=== PATIENT | female | born 1960 | race Caucasian/White ===

== ENCOUNTER 2023-07-10 15:14 | Outpatient (CLI) | payer MEDICARE, BC, SELFPAY | END 2023-07-10 15:15 | disposition home or self-care (01) | LOC: NFLDREF 07-12 06:03 | PROVIDERS: PCP Family Medicine; Referring Provider Family Medicine; Visit Provider Nurse Practitioner Family | DX: N30.00 Acute cystitis without hematuria (principal) | CPT/HCPCS: 87086; 87186 ==

== ENCOUNTER 2023-09-12 09:53 | Outpatient (CLI) | payer MEDICARE, BC, SELFPAY ==
--- OUTSIDE RECORDS SUMMARY | 2023-09-12 09:58 | XMS_ITS | Clinical Summary ---
Author Organization [facility] Address [place], [place] [address] Care Team Providers Care Metal Building Assembler Name Role Phone Pcp, No Primary Care Provider Unavailabl e Allergies No known active allergies Medications No known medications Active Problems Problem Noted Date Diagnosed Date Osteopenia 10/31/2010 Overview: Mild, left femoral neck Preventative health care 06/04/2008 Overview: Colonoscopy 05/2008 normal repeat in 10 years Immunizations Name Administration Dates Next Due Influenza Virus, Unspecified 12/30/2016 Td (Age >=7 Years) 05/25/1997 Tdap 03/19/2008 Family History Medical History Relation Name Comments Heart Disease Father By pass Hypertension Father Heart Disease Mother Hypertension Sister Relation Name Status Comments Father Mother Sister Social History Tobacco Use Types Packs/Day Years Used Date Smoking Tobacco: Former Cigarettes Q uit: 04/01/1989 Smokeless Tobacco: Never Tobacco Cessation:Counseling Given: Yes Comments:smoked for 15 years Alcohol Use Standard Drinks/Week Comments No 0 (1 standard drink = 0.6 oz pure alcohol) recovering alcoholic, sober 1987 Sex and Gender Information Value Date Recorded Sex Assigned at Not on file Gender Identity Not on file Sexual Orientation Not on file Obstetrics History Para Term AB IAB SAB Ectopic Multiple Livin g Live Births 2 2 Date Outcome GA Total Labor Labor/2nd/3rd Weight Sex Type Anes PTL Seda A1 A5 Name Clin Last Filed Vital Signs Vital Sign Reading Time Taken Comments Blood Pressure 112/77 04/18/2017 5:18 PM MEDICAL CUSTOMER SERVICE REPRESENTATIVE tow er Pulse 76 04/18/2017 5:18 PM MEDICAL CUSTOMER SERVICE REPRESENTATIVE Temperature 36.6 ??C (97.9 ??F) 12/11/2012 12:48 PM C DT Respiratory Rate - - Oxygen Saturation 97% 04/18/2017 5:18 PM MEDICAL CUSTOMER SERVICE REPRESENTATIVE Inhaled Oxygen Concentration - - Weight 64.5 kg (142 lb 1.6 oz) 04/18/2017 5:18 P M MEDICAL CUSTOMER SERVICE REPRESENTATIVE Height 165.8 cm (5' 5.28) 04/18/2017 5:18 PM CS T Body Mass Index 23.45 04/18/2017 5:18 PM MEDICAL CUSTOMER SERVICE REPRESENTATIVE Plan of Treatment Health Maintenance Due Date Last Done Comments HIV for age 15-65 1973 Hepatitis C screening for ag e 18-79 01/06/1976 Zoster (shingles) series for age 50+ (1 of 2) 01/06/2008 Mammogram for age 45-75 08/07/2014 08/08/19 14, 01/25/2012, 01/25/2012, Additional history exists Tetanus booster 03/19/2018 03/19/2008, 05/25/1997 BMI (ht and wt on same day) for age 18+ 04/18/2018 04/18/2017 Depression screening for age 12+ 04/18/2018 04/18/19 18 Colonoscopy through age 75 06/04/2018 06/04/2008 Lipids for age 45-75 04/26/2022 04/26/2017, 08/07/2013, 01/25/2012, Additional history exists COVID-19 vaccine series ( - 2022-24 season) 2022 DEXA/DXA scan for age 65+ 2023 05/02/2017, Pneumococcal series for age 65+ (1 of 1 - PCV) 2023 Influenza for age 65+ 12/01/2023 12/30/2016 Tdap Completed 03/19/2008 Procedures Procedure Name Priority Date/Time Associated Diagnosis Comments XR DXA BONE DENSITY 2 SITES AXIAL Routine 05/02/2017 8:16 AM MEDICAL CUSTOMER SERVICE REPRESENTATIVE Osteoporosis screening LIPID PANEL W REFLEX MEASURED LDL Routine 04/26/2017 7:51 AM MEDICAL CUSTOMER SERVICE REPRESENTATIVE Lipid screening XR MAMMO BILAT SCREEN FFDM (IA) Routine 08/07/2013 9:14 AM CDT Other screening mammogram from Last 3 Months or Most Recently Relevant to Health Maintenance Results * (ABNORMAL) XR DXA BONE DENSITY 2 SITES AXIAL (05/02/2017 8:16 AM MEDICAL CUSTOMER SERVICE REPRESENTATIVE) Anatomical Region Laterality Modality Spine, HIPS, HIPL, HIPR Other Narrative 05/07/2017 3:04 PM MEDICAL CUSTOMER SERVICE REPRESENTATIVE Please see scanned document for results of this study. Tessa Oneal NP DEXA * (ABNORMAL) LIPID PANEL W REFLEX MEASURED LDL (04/26/2017 7:51 AM MEDICAL CUSTOMER SERVICE REPRESENTATIVE) CHOLESTEROL,TOTAL 200(H) 100 - 199 mg/dL 04/26/2017 1:17 PM MEDICAL CUSTOMER SERVICE REPRESENTATIVE [facility] [employer] [facility] TRAL LABORATORY TRIGLYCERIDES 45 <150 mg/dL 04/26/2017 1:17 PM MEDICAL CUSTOMER SERVICE REPRESENTATIVE [facility] HDL CHOLESTEROL 72 >40 mg/dL 8 1:17 PM MEDICAL CUSTOMER SERVICE REPRESENTATIVE [facility] TR[facility] LAB[facility]ORY NON-HDL CHOLESTEROL 128 <145 mg/dl 04/26/2017 1:17 PM MEDICAL CUSTOMER SERVICE REPRESENTATIVE [facility] TRAL LABOR[facility]ORY CHOL/HDL RATIO 2.78 <4.50 04/26/2017 1:17 PM MEDICAL CUSTOMER SERVICE REPRESENTATIVE [facility] TR[facility] LAB[facility] LDL CHOLESTEROL 119 <=130 mg/dL 04/26/2017 1:17 PM MEDICAL CUSTOMER SERVICE REPRESENTATIVE [facility] TRAL LABORATORY PROVIDER ORDERED STATUS RANDOM 04/26/2017 1:17 PM MEDICAL CUSTOMER SERVICE REPRESENTATIVE [facility] TRAL LABORATORY Blood BLOOD SPECIMEN / Unknown Venipuncture / Unknown 04/26/2017 7:51 AM MEDICAL CUSTOMER SERVICE REPRESENTATIVE 04/26/2017 7:52 AM MEDICAL CUSTOMER SERVICE REPRESENTATIVE Tessa Oneal NP [facility]ORATORY [address] [place] [address], [place] * XR MAMMO BILAT SCREEN FFDM (08/07/2013 9:14 AM CDT) Anatomical Region Laterality Modality BREASTS, Breast Left, Breast Right Bilateral Mammography Impressions 08/07/2013 12:11 PM CDT ??There is no radiographic evidence for malignancy. ??Recommend annual mammograms. A lay language report of this examination will be provided to the patient. MAMMOGRAM ASSESSMENT: ??ACR 2 Benign Narrative 08/07/2013 12:11 PM CDT XR MAMMO BILAT SCREEN FFDM [G0202.0] CLINICAL HISTORY: ??This is an asymptomatic 53 y.o. patient. INDICATION FOR EXAM: Mammogram Screening. TECHNIQUE: CC & MLO views were obtained. ??This digital study was evaluated with the assistance of Computer-Aided Detection. ?? COMPARISON FILMS: Yes 01/25/12 [facility] 10/26/10 [facility] FINDINGS: ??Mammographically, the breast tissue is heterogeneously dense, which could obscure detection of small masses (approximately 51% - 75% glandular). ??No suspicious masses or microcalcifications. ??Benign appearing asymmetry within right breast. Procedure Note Berry Christianson, DO - 08/07/2013 XR MAMMO BILAT SCREEN FFDM [G0202.0] CLINICAL HISTORY: This is an asymptomatic 53 y.o. patient. INDICATION FOR EXAM: Mammogram Screening. TECHNIQUE: CC & MLO views were obtained. This digital study was evaluatedwith the assistance of Computer-Aided Detection. COMPARISON FILMS: Yes 01/25/12 [facility] 10/26/10 [facility] FINDINGS: Mammographically, the breast tissue is heterogeneously dense,which could obscure detection of small masses (approximately 51% - 75%glandular). No suspicious masses or microcalcifications. Benignappearing asymmetry within right breast. IMPRESSION: There is no radiographic evidence for malignancy. Recommendannual mammograms. A lay language report of this examination will be provided to the patient. MAMMOGRAM ASSESSMENT: ACR 2 Benign Tessa Oneal NP MAMMO from Last 3 Months or Most Recently Relevant to Health Maintenance Care Teams Metal Building Assembler Relationship Specialty Start Date End Date Pcp, No . PCP - General 03/07/18
--- OUTSIDE RECORDS SUMMARY | 2023-09-12 09:58 | XMS_ITS | Clinical Summary ---
Author Organization [facility] Address [address] [place] [address] Care Team Providers Care Public Health Registrar Name Role Phone Pcp, Pt Declines Primary Care Provider [phone] Source Comments You are receiving this document as you are listed as the primary care provider,follow-up provider, or the patient has been referred to you for consultation.This is in compliance with the Medicare and[facility] Hospitalcaid EHR Incentive Program,which states Providers who transition their patient to another setting of careor provider of care or refers their patient to another provider of care shouldprovide summary care record for each transition of care or referral. [facility] Allergies No known active allergies Medications No known medications Active Problems No known active problems Social History Tobacco Use Types Packs/Day Years Used Date Smoking Tobacco: Never Assessed Sex and Gender Information Value Date Recorded Sex Assigned at Not on file Gender Identity Not on file Sexual Orientation Not on file Plan of Treatment Health Maintenance Due Date Last Done Comments Cervical Cancer Screening Due 1960 Colon Cancer Screening Plan Due 1960 Hep C Screening (Preventive Services) 1960 Mammogram 1960 Adult Preventive Visit 01/06/1976 Cholesterol 2003 Zoster/Shingles (1 of 2) 01/06/2008 DTaP/Tdap/Td (2 - Tdap) 03/19/2018 03/19/2008 COVID-19 Vaccine (3 - season) 2022 05/02/2020, 04/12/2020 Pneumococcal 65+ Yrs (1 - PCV) 2023 Influenza (Season Ended) 12/01/202312/13/ 020, 01/19/2019, 01/14/2019, Additional history exists HepA Aged Out No longer eligi ble based on patient's age to complete this topic HepB Aged Out No longer eligi ble based on patient's age to complete this topic Hib Aged Out No longer eligi ble based on patient's age to complete this topic IPV ([place]) Aged Out No longer eligi ble based on patient's age to complete this topic MCV4 Aged Out No longer eligi ble based on patient's age to complete this topic Care Teams Public Health Registrar Relationship Specialty Start Date End Date Pcp, [place] [address] PCP - General 09/10/17
== END 2023-09-12 09:54 | disposition home or self-care (01) ==
PROVIDERS: PCP Family Medicine; Visit Provider Family Medicine
DX: E78.5 Hyperlipidemia, unspecified (principal)
CPT/HCPCS: 80053; 80061

== ENCOUNTER 2023-10-09 14:47 | Outpatient (CLI) | payer MEDICARE, BC, SELFPAY ==
--- OUTSIDE RECORDS SUMMARY | 2023-10-09 14:51 | XMS_ITS | Clinical Summary ---
Author Organization [facility] Address [address] [place] [address] Care Team Providers Care Account Development Specialist Name Role Phone Pcp, Pt Declines Primary Care Provider [phone] Source Comments You are receiving this document as you are listed as the primary care provider,follow-up provider, or the patient has been referred to you for consultation.This is in compliance with the Medicare and[facility] Rehabilitationcaid EHR Incentive Program,which states Providers who transition [...] 65+ Yrs (1 - PCV) 2023 Influenza (#1) 2023 12/14/2019, 12/31, 01/14/2019, Additional history exists HepA Aged Out [...] age to complete this topic Care Teams Account Development Specialist Relationship Specialty Start Date End Date Pcp, [place] [address] PCP - General 09/10/17
--- OUTSIDE RECORDS SUMMARY | 2023-10-09 14:51 | XMS_ITS | Clinical Summary ---
Author Organization [employer] [facility] Address [place], [place] [address] Care Team Providers Care Enrollment Specialist Name Role Phone Pcp, No Primary Care [...] Comments Blood Pressure 112/77 04/18/2017 5:18 PM PULLER MACHINE tow er Pulse 76 04/18/2017 5:18 PM PULLER MACHINE Temperature 36.6 ??C (97.9 ??F) 12/11/2012 12:48 PM C DT Respiratory Rate - - Oxygen Saturation 97% 04/18/2017 5:18 PM PULLER MACHINE Inhaled Oxygen Concentration - - Weight 64.5 kg (142 lb 1.6 oz) 04/18/2017 5:18 P M PULLER MACHINE Height 165.8 cm (5' 5.28) 04/18/2017 5:18 PM CS T Body Mass Index 23.45 04/18/2017 5:18 PM PULLER MACHINE Plan of Treatment Health Maintenance Due Date [...] 2 SITES AXIAL Routine 05/02/2017 8:16 AM PULLER MACHINE Osteoporosis screening LIPID PANEL W REFLEX MEASURED LDL Routine 04/26/2017 7:51 AM PULLER MACHINE Lipid screening XR MAMMO BILAT SCREEN FFDM (IA) Routine 08/07/2013 9:14 AM CDT Other screening mammogram from Last 3 Months or Most Recently Relevant to Health Maintenance Results * (ABNORMAL) XR DXA BONE DENSITY 2 SITES AXIAL (05/02/2017 8:16 AM PULLER MACHINE) Anatomical Region Laterality Modality Spine, HIPS, HIPL, HIPR Other Narrative 05/07/2017 3:04 PM PULLER MACHINE Please see scanned document for results of this study. Tessa Oneal NP DEXA * (ABNORMAL) LIPID PANEL W REFLEX MEASURED LDL (04/26/2017 7:51 AM PULLER MACHINE) CHOLESTEROL,TOTAL 200(H) 100 - 199 mg/dL 04/26/2017 1:17 PM PULLER MACHINE [facility] [employer] [facility] TRAL LABORATORY TRIGLYCERIDES 45 <150 mg/dL 04/26/2017 1:17 PM PULLER MACHINE [facility] TRAL LABORATORY HDL CHOLESTEROL 72 >40 mg/dL 8 1:17 PM PULLER MACHINE [facility] TRAL LABORATORY NON-HDL CHOLESTEROL 128 <145 mg/dl 04/26/2017 1:17 PM PULLER MACHINE [facility] TRAL LABORATORY CHOL/HDL RATIO 2.78 <4.50 04/26/2017 1:17 PM PULLER MACHINE [facility] TRAL LABORATORY LDL CHOLESTEROL 119 <=130 mg/dL 04/26/2017 1:17 PM PULLER MACHINE [facility] TRAL LABORATORY PROVIDER ORDERED STATUS RANDOM 04/26/2017 1:17 PM PULLER MACHINE [facility] TRAL LABORATORY Blood BLOOD SPECIMEN / Unknown Venipuncture / Unknown 04/26/2017 7:51 AM PULLER MACHINE 04/26/2017 7:52 AM PULLER MACHINE Tessa Oneal NP CHE[facility]Y [facility] LAB[facility]ATORYCENTRAL LABORATORY [address] [place] [address], [place] * XR MAMMO BILAT SCREEN FFDM [...] Computer-Aided Detection. ?? COMPARISON FILMS: Yes 01/25/12 [facility] FINDINGS: ??Mammographically, the breast tissue is [...] of Computer-Aided Detection. COMPARISON FILMS: Yes 01/25/12 [facility] 10/26/10 [facility] FINDINGS: Mammographically, the breast tissue is [...] Recently Relevant to Health Maintenance Care Teams Enrollment Specialist Relationship Specialty Start Date End Date Pcp, No . PCP - General 03/07/18
--- NOTE | 2023-10-09 15:00 | CRLHL7_ITS ---
For Patients: As a result of the Century Cures Act, medical imaging exams and procedure reports are released immediately into your electronic medical record. You may view this report before your referring provider. If you have questions, please contact your health care provider. DXA BONE MINERAL DENSITY STUDY Current height (in): 65.0. Weight (lb): 143.0. Menopause age: 39. Ethnicity: White. Reason for exam: History of osteopenia. 1. Have you had a previous hip or vertebral fracture? No. 2. Have you had any fractures during your adult life which did not result from significant trauma (e.g., auto accident)? No. 3. Did either of your parents have a hip fracture? No. 4. Do you smoke? No. 5. Have you ever taken Glucocorticoids? No. 6. Do you have rheumatoid arthritis? No. 7. Do you have secondary osteoporosis? No. 8. Do you drink 3 or more alcoholic drinks per day? No. 9. Are you being treated for osteoporosis? No. 10. Have you ever taken any of the following medications: Actonel, Evista, Fosamax, Miacalcin, Reclast, Boniva, Forteo, HRT (i.e. estrogen/hormone therapy), Protelos, Prolia, Vitamin D, Calcium, other ??? please specify. ANSWER: Yes, calcium, vitamin D. 11. Do you have any of the following medical conditions: Anorexia or bulimia, asthma or emphysema, end stage renal disease, hyperparathyroidism, any seizure disorders, cancer, inflammatory bowel diseases, hysterectomy, other ??? please specify. ANSWER: No. 12. What was your maximum height (inches)? 65.5. 13. Do you perform weight bearing exercise regularly? No. 14. Do you regularly consume dairy products? No. 15. Do you drink caffeinated beverages? Yes. * 16. At what age did your period start? 12. 17. Are you premenopausal? No. 18. How many full-term pregnancies have you had? 2. 19. Have you ever missed your period for more than 6 months in a row (not including or menopause)? Yes. TECHNIQUE: Bone mineral density study was performed using the [employer]. FINDINGS: The results of the study expressed as bone mineral density (BMD) are as follows: Lumbar spine L1 to L4: BMD: 0.887 g/cm2. T-score: -1.5. Z-score: 0.4 Neck Left: BMD: 0.687 g/cm2. T-score: -1.5. Z-score: 0.1 Right: BMD: 0.637 g/cm2. T-score: -1.9. Z-score: -0.4 Total Left: BMD: 0.808 g/cm2. T-score: -1.1. Z-score: 0.2 Right: BMD: 0.746 g/cm2. T-score: -1.6. Z-score: -0.3 IMPRESSION: Osteopenia. *Comparison exams done prior to 08/2019 were performed on different unit, [employer]. COMPARISON: Compared with scan of 01/12/2021, the bone mineral density has increased by 2.9percent at the spine and increased decreased by 3.0 percent at the hip. FRAX 10-year Fracture Risk Major Osteoporotic Fracture: 9.9 percent Hip Fracture: 1.4 percent Reported Risk Factors: [place] () Neck BMD = 0.637, BMI = 23.8 Willem Amos M.D. Diagnostic Radiologist [email or web address] Transcribed: 1:46 pm DW/Dictated by: Willem Amos MD @ 10/11/2023 8:13:00 AM (Electronically Signed)
== END 2023-10-09 14:48 | disposition home or self-care (01) ==
LOC: RAD 14:50
PROVIDERS: PCP Family Medicine; Visit Provider Family Medicine
DX: M85.89 Other specified disorders of bone density and structure, multiple sites (principal); M85.80 Other specified disorders of bone density and structure, unspecified site; Z78.0 Asymptomatic menopausal state
CPT/HCPCS: 77080

== ENCOUNTER 2023-11-18 13:23 | Outpatient (CLI) | payer MEDICARE, SELFPAY ==
--- OUTSIDE RECORDS SUMMARY | 2023-11-18 13:29 | XMS_ITS | Clinical Summary ---
Author Organization [facility] Address [address] [place] [address] Care Team Providers Care Salon Supervisor Name Role Phone Pcp, Pt Declines Primary Care Provider [phone] Source Comments You are receiving this document as you are listed as the primary care provider,follow-up provider, or the patient has been referred to you for consultation.This is in compliance with the Medicare andOhio[facility] Hospitalcaid EHR Incentive Program,which states Providers who [...] age to complete this topic Care Teams Salon Supervisor Relationship Specialty Start Date End Date Pcp, [place] [address] PCP - General 09/10/17
--- OUTSIDE RECORDS SUMMARY | 2023-11-18 13:29 | XMS_ITS | Clinical Summary ---
Author Organization [employer] [facility] Address [place], [place] [address] Care Team Providers Care Registered Nurse Surgical Services Name Role Phone Pcp, No Primary Care [...] Blood Pressure 112/77 04/18/2017 5:18 PM MEDICAL RECEPTION SPECIALIST tow er Pulse 76 04/18/2017 5:18 PM MEDICAL RECEPTION SPECIALIST Temperature 36.6 ??C (97.9 ??F) 12/11/2012 12:48 PM C DT Respiratory Rate - - Oxygen Saturation 97% 04/18/2017 5:18 PM MEDICAL RECEPTION SPECIALIST Inhaled Oxygen Concentration - - Weight 64.5 kg (142 lb 1.6 oz) 04/18/2017 5:18 P M MEDICAL RECEPTION SPECIALIST Height 165.8 cm (5' 5.28) 04/18/2017 5:18 PM CS T Body Mass Index 23.45 04/18/2017 5:18 PM MEDICAL RECEPTION SPECIALIST Plan of Treatment Health Maintenance Due Date [...] SITES AXIAL Routine 05/02/2017 8:16 AM MEDICAL RECEPTION SPECIALIST Osteoporosis screening LIPID PANEL W REFLEX MEASURED LDL Routine 04/26/2017 7:51 AM MEDICAL RECEPTION SPECIALIST Lipid screening XR MAMMO BILAT SCREEN FFDM (IA) Routine 08/07/2013 9:14 AM CDT Other screening mammogram from Last 3 Months or Most Recently Relevant to Health Maintenance Results * (ABNORMAL) XR DXA BONE DENSITY 2 SITES AXIAL (05/02/2017 8:16 AM MEDICAL RECEPTION SPECIALIST) Anatomical Region Laterality Modality Spine, HIPS, HIPL, HIPR Other Narrative 05/07/2017 3:04 PM MEDICAL RECEPTION SPECIALIST Please see scanned document for results of this study. Tessa Oneal NP DEXA * (ABNORMAL) LIPID PANEL W REFLEX MEASURED LDL (04/26/2017 7:51 AM MEDICAL RECEPTION SPECIALIST) CHOLESTEROL,TOTAL 200(H) 100 - 199 mg/dL 04/26/2017 1:17 PM MEDICAL RECEPTION SPECIALIST [facility] TRAL LABORATORY TRIGLYCERIDES 45 <150 mg/dL 04/26/2017 1:17 PM MEDICAL RECEPTION SPECIALIST [facility] TRAL LABORATORY HDL CHOLESTEROL 72 >40 mg/dL 8 1:17 PM MEDICAL RECEPTION SPECIALIST [facility] TRAL LABORATORY NON-HDL CHOLESTEROL 128 <145 mg/dl 04/26/2017 1:17 PM MEDICAL RECEPTION SPECIALIST [facility] TRAL LABORATORY CHOL/HDL RATIO 2.78 <4.50 04/26/2017 1:17 PM MEDICAL RECEPTION SPECIALIST [facility] TRAL LABORATORY LDL CHOLESTEROL 119 <=130 mg/dL 04/26/2017 1:17 PM MEDICAL RECEPTION SPECIALIST [facility] TRAL LABORATORY PROVIDER ORDERED STATUS RANDOM 04/26/2017 1:17 PM MEDICAL RECEPTION SPECIALIST [facility] TRAL LABORATORY Blood BLOOD SPECIMEN / Unknown Venipuncture / Unknown 04/26/2017 7:51 AM MEDICAL RECEPTION SPECIALIST 04/26/2017 7:52 AM MEDICAL RECEPTION SPECIALIST Tessa Oneal NP CHEMISTRY [facility] Risk Management [facility] LAB[facility]ORY[facility]AL LABORATORY [address] [place] [address], [place] * XR MAMMO BILAT SCREEN FFDM [...] Computer-Aided Detection. ?? COMPARISON FILMS: Yes 01/25/12 [facility] 10/26/10 [facility] FINDINGS: ??Mammographically, the breast tissue is heterogeneously [...] of Computer-Aided Detection. COMPARISON FILMS: Yes 01/25/12 [facility] 10/26/10 [facility] FINDINGS: Mammographically, the breast tissue is heterogeneously [...] Recently Relevant to Health Maintenance Care Teams Registered Nurse Surgical Services Relationship Specialty Start Date End Date Pcp, No . PCP - General 03/07/18
--- NOTE | 2023-11-18 13:40 | CRLHL7_ITS ---
For Patients: As a result of the Century Cures Act, medical imaging exams and procedure reports are released immediately into your electronic medical record. You may view this report before your referring provider. If you have questions, please contact your health care provider. BILATERAL SCREENING MAMMOGRAM WITH COMPUTER-AIDED DETECTION AND TOMOSYNTHESIS TECHNIQUE: CC and MLO views were obtained. These mammographic images have been obtained using full-field digital technique. These mammographic images were interpreted with the benefit of computer-aided detection. Breast Tomosynthesis was used in this interpretation. COMPARISON FILM: 11/08/20, 08/07/13, 01/25/12. FINDINGS: The breasts are heterogeneously dense, which may obscure small masses. IMPRESSION: There is no radiographic evidence for malignancy. ASSESSMENT: BI-RADS Category 1: Negative RECOMMENDATION: Routine screening mammogram in 1 year. A lay language report of this examination will be provided to the patient. Scott Rowe M.D. Diagnostic Radiologist [email or web address] SP/Dictated by: Scott Rowe MD @ 11/19/2023 8:35:00 AM (Electronically Signed)
== END 2023-11-18 13:24 | disposition home or self-care (01) ==
PROVIDERS: PCP Family Medicine; Visit Provider Family Medicine
DX: Z12.31 Encounter for screening mammogram for malignant neoplasm of breast (principal); R92.2 Inconclusive mammogram
CPT/HCPCS: 77063; 77067

== ENCOUNTER 2024-11-27 07:00 | Outpatient (CLI) | payer MEDICARE, SELFPAY ==
--- NOTE | 2024-11-27 07:15 | MR_ITS ---
[address] [address] Phone:?[phone] Fax:?[phone] Referring Physician Information: Ashkan Diaz M.D. [id number] [id number] Phone:?[phone] Fax:?[phone] Patient:Christy Walker D.O.B:?1960 Sex:?Female Phone:?[phone] [facility] MRN:?[id number] Exam Date:?11/27/2024 EXAM: MRI of the RIGHT SHOULDER without contrast CLINICAL: Evaluate for rotator cuff tear. COMPARISONS: X-rays 11/17/2024. TECHNICAL: Multiplanar multisequence MRI of the right shoulder was obtained. SEDATION: None. CONTRAST: None. FINDINGS: Rotator cuff: Supraspinatus/Infraspinatus: There is mild to moderate tendinosis and mild partial interstitial insertional tearing of the distal supraspinatus tendon. Infraspinatus tendon appears unremarkable. No significant fatty atrophy of the muscles. Teres minor: No tendinosis, tear or atrophy. Subscapularis: There is mild tendinosis and mild partial articular surface/interstitial tearing of the distal tendon. No significant fatty atrophy of the muscle. Bursae: Subacromial-subdeltoid: Mild bursal edema. Subcoracoid: No significant bursal fluid. Coracoacromial arch: Acromion morphology: Type I. No os acromiale. Acromiohumeral space: Within normal limits. Coracohumeral space: Within normal limits. Biceps tendon, long head: There is mild tendinosis/partial interstitial tearing of the intra-articular tendon, also seen to involve the imaged proximal extra articular tendon. No tendon displacement. Glenohumeral joint: Small volume of glenohumeral joint fluid is present. Articular cartilage: No significant chondral loss. Capsule: No evidence of capsular thickening or injury. Labrum: There is tearing of the superior labrum posterior to the biceps anchor extending into the far posterior labrum. Ill-defined degenerative changes are also seen to involve the anterior labrum. No perilabral cyst identified. Bones: No suspicious marrow signal alteration, fracture or dislocation. Acromioclavicular joint: Mild to moderate changes of arthrosis. No AC joint injury/widening. IMPRESSION: 1. Mild to moderate tendinosis and mild partial interstitial insertional tearing of the distal supraspinatus tendon. Mild tendinosis and mild partial tearing also involves the distal subscapularis tendon. 2. Mild tendinosis/partial interstitial tearing of the long head biceps tendon. 3. Tearing of the superior labrum extending into the far posterior labrum with ill-defined degenerative changes involving the anterior labrum. 4. 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 JCZ Electronically signed on 11/27/2024 12:32:00 PM by Fabián Guerrero D.O.
== END 2024-11-27 07:01 | disposition home or self-care (01) ==
LOC: MRI 07:00
PROVIDERS: PCP Family Medicine; Visit Provider Orthopaedic Surgery Sports Medicine
DX: S46.011A Strain of muscle(s) and tendon(s) of the rotator cuff of right shoulder, initial encounter (principal); S46.211A Strain of muscle, fascia and tendon of other parts of biceps, right arm, initial encounter; S43.431A Superior glenoid labrum lesion of right shoulder, initial encounter; M19.011 Primary osteoarthritis, right shoulder
CPT/HCPCS: 73221

== ENCOUNTER 2025-01-20 08:19 | Day surgery (SDC) | payer MEDICARE, SELFPAY ==
[2025-01-20] VITALS (16 sets, daily range): BP systolic 91–136; BP diastolic 61–97; PULSE 64–85; RESP 12–20; TEMP 35.9–36.4; O2SAT 91–99; BMI 25.1
[2025-01-20] MEDS: SODIUM CHLORIDE 0.9 % (FLUSH) 10 ML SYRINGE IVF (09:10)
[2025-01-20] MEDS: LACTATED RINGERS 1000 ML 1,000 ML 100 ML IV ×2 (09:11→11:59)
--- NOTE | 2025-01-20 09:22 | W.PM.H&PU ---
History & Physical Update History & Physical Update H&P Reviewed and patient assessed: No changes noted
[2025-01-20] MEDS: MIDAZOLAM HCL 1 MG/ML inj IVP (09:58)
--- NOTE | 2025-01-20 10:00 | SUR.PREOP ---
TIME?OUT:?954, right shoulder PT/RN/MDA?VERIFICATION?OF?SURGICAL?SITE,?PROCEDURE,?AND?CONSENT OBTAINED?PRIOR?TO?INVASIVE?PROCEDURE.
--- NOTE | 2025-01-20 11:50 | P.ORPRC_ITS ---
Procedure Note Date of procedure: 01/20/25 Procedure: PREOPERATIVE DIAGNOSES: 1. Right shoulder rotator cuff tear - upper border subscap 2. Right shoulder superior, posterior, and anterior labral tearing 3. Right shoulder subacromial impingement syndrome. POSTOPERATIVE DIAGNOSES: 1. Right shoulder rotator cuff tear - upper border subscap 2. Right shoulder superior, posterior, and anterior labral tearing 3. Right shoulder subacromial impingement syndrome. NAME OF OPERATION: 1. Right shoulder arthroscopic rotator cuff repair - upper border subscapularis 2. Right shoulder arthroscopic limited glenohumeral debridement 3. Right shoulder arthroscopic bursectomy, subacromial decompression/partial acromioplasty. SURGEON: Ashkan Diaz MD OFFENDER EMPLOYMENT SPECIALIST: Jessee PARRISH. Of note, a skilled pediatric assistant was critical for this case to aide in patient positioning, suture manipulation, arm positioning, instrument positioning, and closure. ANESTHESIA: General plus preoperative supraclavicular block. EBL: 25 mL IMPLANTS: Arthrex 4.75 mm BioComposite SwiveLock suture anchor (x1); COMPLICATIONS: None evident INDICATIONS: The patient is a pleasant, 65-year-old female who has experienced right shoulder pain that has been increasing in recent time. Physical exam and imaging were consistent with a rotator cuff tear. Given their findings, as well as the weakness and pain, and inadequate response to nonoperative management, recommendation was made for surgery. FINDINGS: Exam under anesthesia revealed stable shoulder with excellent range of motion. The diagnostic arthroscopy revealed healthy chondral surfaces of the glenohumeral joint. The Subscapularis tendon was torn from its upper border with moderate retraction. The long head of the biceps tendon was torn low-grade partial-thickness manner at the bicipital groove region. The origin was still intact and strong. The superior rotator cuff tendon was found to be torn and a low-grade partial-thickness manner on the articular side involving up to 2 mm of thickness. The labrum was degenerative frayed and torn in the superior, posterior, and anterior aspects. No loose bodies were identified within the pouch or subscapularis recess. PROCEDURE: Following a thorough discussion of risks, benefits, and alternatives, consent was obtained and the right shoulder was marked. The patient was brought to the operating room and placed supine on the operating table. Induction of anesthesia was completed after preoperative supraclavicular block was administered in preop holding. Appropriate time out was performed identifying proper patient, site, and procedure. 2 g IV Ancef was administered within 1 hour of incision preoperatively. The right upper extremity was prepped and draped in the appropriate sterile fashion using ChloraPrep prep. This was after the patient was positioned in the beach chair with their head in neutral alignment and all bony prominences well padded. The shoulder was insufflated with 20mL of normal saline via an 18g spinal needle from a posterior approach. An 11 blade skin incision allowed a blunt trochar to be inserted and diagnostic arthroscopy to be performed with the findings as noted above. An anterior portal was established with an outside in technique. This allowed the probe to be inserted and confirm the diagnostic arthroscopic findings. The shaver was then inserted and allowed debridement of the anterior, superior, and posterior labrum the as well as the long head of the biceps low-grade partial- thickness tearing loose tendinous flap components on the deep surface that was better visualized when the tendon was retracted into the joint. Following this, the upper border subscapularis was repaired after debriding the lesser tuberosity with the shaver and [place] cautery. Subscapularis was captured in horizontal mattress fashion with a fiber tape suture. The tails were brought to a single anchor in the lesser tuberosity with excellent reapproximation of the subscap tendon and good excursion/tension. Thereafter, the subacromial space was entered. Here, a complete bursectomy and partial acromioplasty/subacromial decompression was performed with a combination of radiofrequency ablator, the shaver, and a 5.5 mm bur. Further inspection of the supraspinatus and infraspinatus rotator cuff was performed. This was probed, the shoulder rotated, and again reprobed. No significant high-grade partial or full-thickness tearing of the supraspinatus or infraspinatus was identified. The shoulder was placed through range of motion and found to be stable. The rotator cuff was re-probed and found to be stable. Instruments were removed. Excess fluid was drained, closure performed with 4-0 Monocryl and Steri-Strips. Dressings were applied. Sling was applied. The patient was awoken from anesthesia and transferred to the PACU in stable condition. A skilled pediatric assistant was critical for this case to aid in patient positioning, limb positioning, skill to manipulate arthroscopic instruments and camera, suture management, patient safety, and closure. PLAN: 1. Elbow, forearm, wrist and digit range of motion as tolerated. 2. Encouraged ice. 3. Tramadol for pain as needed. 4. Sling at all times except for ROM and showering. 5. Follow up with PA visit in 1-2 weeks for wound check. Initiate physical therapy following that visit for passive range of motion. Initiate active assisted range of motion at 3-4weeks. May do pendulums now.
--- NOTE | 2025-01-20 12:02 | P.ANES_ITS ---
Anesthesia Charges Start Date/Time Anesthesia Start Date: 01/20/25 Anesthesia Start Time: 10:31 Stop Date/Time Anesthesia Stop Date: 01/20/25 Anesthesia Stop Time: 12:01 Coding CPT Codes CPT Codes: ANESTH SURGERY OF SHOULDER - 18562 ([id number]) P1 - NORMAL HEALTHY PATIENT, QK - IRON INSTALLER 2-4 CNCRNT ANES PROC, QX - ENROLLMENT MANAGEMENT COORDINATOR SVZhanna W/ MED DIRECTION
--- NOTE | 2025-01-20 12:02 | W.ANESCHARGE ---
Anesthesia Charges Start Date/Time Anesthesia Start Date: 01/20/25 Anesthesia Start Time: 10:31 Stop Date/Time Anesthesia Stop Date: 01/20/25 Anesthesia Stop Time: 12:01 Coding CPT Codes CPT Codes: ANESTH SURGERY OF SHOULDER - 24753 ([id number]) P1 - NORMAL HEALTHY PATIENT, QK - LOOP MACHINE OPERATOR 2-4 CNCRNT ANES PROC, QX - STAPLE FIBER WASHER SVZhanna W/ MED DIRECTION
--- NOTE | 2025-01-20 12:26 | P.NB_ITS ---
Nerve Block Nerve Block Time Seen by Provider: 10:00 Date Seen: 01/20/25 Type of block requested by surgeon for post-operative analgesia: supraclavicular Side: right Time out performed: Yes Verification of patient name: Yes Verification of date of : Yes Site marking: site marked Name of person performing procedure: Marc Continuous monitoring Was continuous monitoring of O2 sat, B/P, cardiac cath rn, recorded every 15 minutes?: Yes Procedure Checklist: sterile prep, needles and gloves Ultrasound guided. Images saved: Yes Medications given in 5ml increments after negative aspiration: Ropivicaine %: 0.5 mL: 20 Needle gauge: 22 Precedex (mcg): 25 Patient tolerated procedure well: Yes Block Charges Block Charge (with Pro Fee): Brachial Plexus Use of Ultrasound Machine for Block: Yes- US Guidance/pain block
--- NOTE | 2025-01-20 12:27 | P.ANES_ITS ---
Anesthesia Charges Start Date/Time Anesthesia Start Date: 01/20/25 Anesthesia Start Time: 10:31 Stop Date/Time Anesthesia Stop Date: 01/20/25 Anesthesia Stop Time: 12:01 Coding CPT Codes CPT Codes: ANESTH SURGERY OF SHOULDER - 48122 ([id number]) QK - NATUROPATH 2-4 CNCRNT ANES PROC, QX - SPECIAL EDUCATION RESOURCE ROOM TEACHER SVC W/ MD MED DIRECTION, P1 - NORMAL HEALTHY PATIENT
--- NOTE | 2025-01-20 12:27 | W.ANESCHARGE ---
Anesthesia Charges Start Date/Time Anesthesia Start Date: 01/20/25 Anesthesia Start Time: 10:31 Stop Date/Time Anesthesia Stop Date: 01/20/25 Anesthesia Stop Time: 12:01 Coding CPT Codes CPT Codes: ANESTH SURGERY OF SHOULDER - 09646 ([id number]) QK - INDUSTRIAL TECHNOLOGY TEACHER 2-4 CNCRNT ANES PROC, QX - GRIPPER INSTALLER SVC W/ MD MED DIRECTION, P1 - NORMAL HEALTHY PATIENT
== END 2025-01-20 14:07 | disposition home or self-care (01) ==
LOC: OR 08:20
PROVIDERS: PCP Family Medicine; Visit Provider Orthopaedic Surgery Sports Medicine
PROC: (CPT 29805; principal; 2025-01-20 10:00)
DX: S46.011A Strain of muscle(s) and tendon(s) of the rotator cuff of right shoulder, initial encounter (principal); S43.431A Superior glenoid labrum lesion of right shoulder, initial encounter; M75.41 Impingement syndrome of right shoulder; G89.18 Other acute postprocedural pain
CPT/HCPCS: 29827; 29826; 29822; 01630; 64415; 76942; C1713; J0330; J1100; J2250; J2371; J2405; J2704; J2795; J3010; J3490; J7120; L3670

== ENCOUNTER 2025-02-15 12:11 | Outpatient (CLI) | payer MEDICARE, SELFPAY | END 2025-02-15 12:12 | disposition home or self-care (01) | LOC: NFLDREF 02-20 15:46 | PROVIDERS: PCP Family Medicine; Referring Provider Family Medicine; Visit Provider Nurse Practitioner Family | DX: N30.01 Acute cystitis with hematuria (principal) | CPT/HCPCS: 87086 ==